=== PATIENT | female | born 1950 | race Caucasian/White ===

== ENCOUNTER 2017-04-13 11:06 | Observation (INO) | payer MEDICARE, OTHER ==
--- NOTE | ~2017-04-13 | HP ---
History And Physical [id number] [facility] [place]. [address] NAME: EARL DAVIDSON : 50 STATUS : ADM Jose Luis PAT#: [id number] AGE: 66 ADM/REG DATE : 04/13/17 MR#: [id number] REPORT SERV DATE: 04/13/17 DICTATED BY: JUSTIN GARLAND DATE: 04/13/17 REPORT STATUS : Draft TRANSCRIBED BY: MODL DATE: 04/13/17 DATE OF ADMISSION: 04/13/2017 HISTORY OF PRESENT ILLNESS: The patient is a 66-year-old female without known coronary artery disease, who presented to the [facility] for evaluation of rash and chest pain. The patient with a history of Helicobacter pylori, peptic ulcer disease, and GERD, who has been on a combination of Flagyl, Levaquin, Bismuth, and pantoprazole for the last five to six days. This is reportedly a second round of treatment for H pylori. The patient reports for the last two days, she has developed intermittent chest discomfort, occurring in the substernal region with radiation to the neck bilaterally and directly through to the back to the interscapular region. The patient denies meal association with the pain. She reports that the longest duration of the pain has been approximately 30 minutes. Maximum intensity of the pain is 6-7/10. The patient has been quite sedentary and has noted no obvious exacerbating or relieving factors. The patient also noted onset of a pruritic rash to the torso and extremities yesterday. This progressed to the point that this brought her to the emergency department in association with her chest discomfort. She has hive-appearing rash to the chest, thighs, and upper extremities. She denies any respiratory distress. She currently denies chest pain. She reports no unusual recent meals, contacts with substances or animals to which she is not accustomed. The only recent change is the initiation of Flagyl and Levaquin approximately five days ago. PAST MEDICAL HISTORY: 1. Hypertension. 2. GERD. 3. Peptic ulcer disease with H pylori. 4. B12 deficiency. 5. Hypothyroidism. 6. Restless legs syndrome. 7. History of depression. ALLERGIES: PENICILLIN, ERYTHROMYCIN, AND SULFA WITH RASH REACTION. ASPIRIN, NAPROXEN, AND IBUPROFEN WITH FACIAL SWELLING. SOCIAL HISTORY: Denies previous tobacco, alcohol, or illicit drug use. FAMILY HISTORY: Father with coronary artery bypass grafting in his 60s, who in his 80s of complications of congestive heart failure. Mother with history of diabetes. PAST SURGICAL HISTORY: Hysterectomy, section, left total knee arthroplasty, right total hip arthroplasty. REVIEW OF SYSTEMS: Negative for all organ systems except per the history of present illness. MEDICATIONS: 1. Atenolol 25 mg daily. History And Physical [address] [address] NAME: ERAL DAVIDSON : 50 STATUS : ADM Jose Luis PAT#: [id number] AGE: 66 ADM/REG DATE : 04/13/17 MR#: [id number] REPORT SERV DATE: 04/13/17 DICTATED BY: JUSTIN GARLAND DATE: 04/13/17 REPORT STATUS : Draft TRANSCRIBED BY: JOEY DATE: 04/13/17 2. Vitamin B12 1000 mcg sublingual daily. 3. Levaquin 500 mg daily. 4. Levothyroxine 50 mcg daily. 5. Lisinopril/hydrochlorothiazide 20/12.5 mg daily. 6. Metronidazole 250 mg q.i.d. 7. Multivitamin with minerals daily. 8. Requip 0.25 mg p.o. at bedtime. PHYSICAL EXAMINATION: VITALS: Blood pressure 164/82, pulse 65, respirations 12 and unlabored. GENERAL: Obese, elderly female, in no acute distress. HEENT: Normal. NECK: Supple, no JVD or bruit, normal carotid upstroke bilaterally, no thyromegaly. LUNGS: Clear to auscultation and percussion. No wheezes, rales or rhonchi. No use of accessory muscles. CARDIOLOGY: Regular rhythm, normal S1, S2, no thrill, no murmur, rubs or gallops, normal PMI. ABDOMEN: Bowel sounds positive, soft, nontender, and obese. No masses or aortic bruits. No hepatosplenomegaly or hepatojugular reflux. EXTREMITIES: Hyperpigmentation at the ankles bilaterally. SKIN: Raised hive-type reaction noted to the chest, upper extremities, and thighs. NEUROLOGIC: Alert and oriented x 3. Appropriate mood. EKG: Sinus rhythm. Normal EKG. LABORATORIES: WBC 7.9, hemoglobin 13.9, hematocrit 40.9, platelets 231,000. Serial troponin 0.00 and 0.06. CK-MB 1.8. Liver function tests are within normal limits. Sodium 136, potassium 4, chloride 101, CO2 of 26, BUN 28, creatinine 1. Creatine kinase 60. IMPRESSION: 1. Chest pain - suspicious for gastrointestinal etiology, however, rising troponin level by serial emergency department evaluation. The patient admitted to observation status. Serial troponins. If negative, we will plan for discharge in the a.m. If troponins continue to rise, we will plan for cardiac catheterization. The risks, benefits, and alternatives of the procedure have been discussed with the patient. The patient's questions have been answered. Complications including, but not limited to, , myocardial infarction, stroke, renal failure, life-threatening allergic reaction, life- threatening arrhythmia, vascular or cardiac injury requiring emergent surgery have been discussed with the patient. The patient voices understanding the potential risks and desires to proceed if necessary. 2. Allergic reaction - etiology is unclear. We will hold the patient's antibiotics at this time. Begin a Medrol Dosepak and Benadryl. 3. Hypertension - adequate blood pressure control by home measurements. Elevated today, likely related to anxiety, pain, and recent administration of intravenous steroids. 4. Continue other home medications as outlined in the home medication list. History And Physical [address] [address] NAME: EARL DAVIDSON : 50 STATUS : ADM Jose Luis PAT#: [id number] AGE: 66 ADM/REG DATE : 04/13/17 MR#: [id number] REPORT SERV DATE: 04/13/17 DICTATED BY: JUSTIN GARLAND DATE: 04/13/17 REPORT STATUS : Draft TRANSCRIBED BY: JOEY DATE: 04/13/17 JEFF/JEOY Jean Paul Garland M.D. / [id number] CC: Tyrell Manning M.D.
[~2017-04-13 11:06] MED LIST: ATEN25 PO; CENTRUM PO; COLLAGEN PLU PO; DSS PO; ELIQUIS 2.5 MG2.5 MG PO; FESO4 PO; HCTZ12.5 PO; LEVOTHYROXIN50 MCG PO; MVI PO; NORCO1 TA1 PO; OXYCON10 PO; OXYCON20 PO; PCET PO; PEP20 PO; PR25 PO; PRINZIDE1 TA1 PO; VITAMIN B-121000 MC1 SL; WELL100 PO; [UNRECOGNIZED DRUG - OTHER]
[2017-04-13] MEDS ORDERED: REQUIP25 PO (11:26)
[2017-04-13] MEDS ORDERED: LEVAQUIN5T PO (11:29)
[2017-04-13] MEDS ORDERED: FLAGYL250 MG PO (11:32)
[2017-04-13] MEDS ORDERED: PROTONIX PO (19:06)
[2017-04-13] MEDS ORDERED: PRILOSEC OTC20 MG PO (19:07)
[2017-04-13] MEDS ORDERED: PEPTO-BISMOL TA1 TAB PO (19:09)
[2017-04-14] MEDS ORDERED: MEDROLPAK4 PO (09:57)
[2017-04-14] MEDS ORDERED: SUCR PO (09:58)
[2017-04-14] MEDS ORDERED: BEN25 PO (10:01)
== END 2017-04-14 10:29 | disposition home or self-care (01) ==
LOC: CDU2 11:06
DX: R07.89 Other chest pain (principal); T78.40XA Allergy, unspecified, initial encounter; X58.XXXA Exposure to other specified factors, initial encounter; I10 Essential (primary) hypertension; E53.8 Deficiency of other specified B group vitamins; E03.9 Hypothyroidism, unspecified; G25.81 Restless legs syndrome; K27.9 Peptic ulcer, site unspecified, unspecified as acute or chronic, without hemorrhage or perforation; K21.9 Gastro-esophageal reflux disease without esophagitis; Z82.49 Family history of ischemic heart disease and other diseases of the circulatory system; Z83.3 Family history of diabetes mellitus; Z90.710 Acquired absence of both cervix and uterus; Z98.890 Other specified postprocedural states; Z96.652 Presence of left artificial knee joint; Z96.641 Presence of right artificial hip joint; Z88.0 Allergy status to penicillin; Z88.1 Allergy status to other antibiotic agents; Z88.2 Allergy status to sulfonamides; Z88.6 Allergy status to analgesic agent; Z79.2 Long term (current) use of antibiotics; Z79.899 Other long term (current) drug therapy
CPT/HCPCS: 84484; 96374; A9270-GY; G0378; J0360

== ENCOUNTER 2017-04-15 17:00 | Observation (INO) | payer MEDICARE, OTHER ==
--- NOTE | ~2017-04-15 | CN ---
Consultation Report [facility] [address] [place] [place]. [address] NAME: EARL DAVIDSON : 50 STATUS : DIS Jose Luis PAT#: [id number] AGE: 66 ADM/REG DATE : 04/15/17 MR#: [id number] REPORT SERV DATE: 04/16/17 DICTATED BY: SISSY MARTINEZ DATE: 04/16/17 REPORT STATUS : Draft TRANSCRIBED BY: MODJosue DATE: 04/16/17 CARDIOLOGY CONSULTATION NOTE DATE OF CONSULTATION: 04/16/2017 PRIMARY POWERHOUSE ELECTRICIAN: Dr. Garland. CHIEF COMPLAINT: Epigastric pain. REASON FOR CONSULTATION: Bradycardia. SOURCE: The patient and the chart. HISTORY OF PRESENT ILLNESS: Ms. Davidson is a very pleasant, 66-year-old, white woman, who has no prior cardiac history. She reports that she was recently hospitalized in the Chest Pain Observation Unit from 04/13/2017 to 04/14/2017, as she ruled out for myocardial infarction and was discharged home. She was readmitted yesterday for possible drug reaction and esophagitis. She was having some chest discomfort. She underwent EGD today, which revealed hiatal hernia. No esophagitis, and biopsy was taken of the stomach for H pylori. Proton pump inhibitors were recommended, and she was discharged and given followup. We were asked to see her for possible cardiac source of chest pain. REVIEW OF SYSTEMS: All other systems are negative. ALLERGIES: INCLUDE PENICILLIN, SULFA, ASPIRIN, IBUPROFEN, NAPROSYN, AND ERYTHROMYCIN. MEDICATIONS: At home included atenolol 25, B12, Benadryl, levothyroxine, lisinopril, HCT, Medrol Dosepak, Centrum, Protonix, ropinirole, and sucralfate. PAST MEDICAL HISTORY: Significant for peptic ulcer disease and esophagitis, seen by Dr. Bunn with treatment for H pylori. Depression. Hypothyroidism, on replacement. Hypertension, B12 deficiency, restless legs, rheumatoid arthritis. Never been on disease- modifying medication such as methotrexate. Elevated cholesterol. FAMILY HISTORY: Father had coronary artery bypass grafting. SOCIAL HISTORY: The patient lives in [place]. Seven children and six of whom live locally, 11 grandchildren. Denies tobacco or alcohol use. She is . PHYSICAL EXAMINATION: GENERAL: Well-developed, well-nourished elderly white woman, in no acute distress. VITAL SIGNS: Blood pressure is 164/70, pulse 48, temperature 97.7 degrees Fahrenheit. Weight is 128.8 kilos. Height is 5 feet 9 inches. Consultation Report [address]. [address] NAME: EARL DAVIDSON : 50 STATUS : DIS Jose Luis PAT#: [id number] AGE: 66 ADM/REG DATE : 04/15/17 MR#: [id number] REPORT SERV DATE: 04/16/17 DICTATED BY: SISSY MARTINEZ DATE: 04/16/17 REPORT STATUS : Draft TRANSCRIBED BY: JOEY DATE: 04/16/17 HEENT: Sclerae anicteric. Lips without cyanosis. NECK: Carotids 2+ and symmetrical. No bruits. No JVD. No thyromegaly. LUNGS: Clear to auscultation. No use of accessory muscles. HEART: Regular rate and rhythm without murmur, gallop, or rub. ABDOMEN: Obese, positive bowel sounds, soft, and nontender. EXTREMITIES: Pulses 2+ and symmetrical. No cyanosis, clubbing, or edema. BACK: No CVA tenderness. MUSCULOSKELETAL: Good tone. NEUROLOGIC: Alert and oriented x3. LABORATORY DATA AND IMAGING: EKG reveals sinus bradycardia, otherwise normal tracing. Laboratory examination includes white count of 9.2, hemoglobin 13.6, hematocrit 40.9, platelets 255,000. INR is 1.1. PTT of 27.4. The BNP level is 113, sodium 141, potassium 4.0, chloride 106, CO2 of 29, glucose 177, BUN 32, creatinine 1.22, troponin of less than 0.22, TSH of 0.242. Free T4 of 1.24 and T3 free of 1.47. EGD report from today normal esophagus, hiatal hernia, normal mucosa found in the entire stomach, biopsied. Exam was otherwise normal. IMPRESSION: 1. Bradycardia. Possibly side effect of atenolol. She has other potential contributing factors including diphenhydramine use, obesity. Cannot exclude sleep apnea. And hypothyroidism on replacement. She specifically denies sleep apnea. She has been tested for it. 2. Check thyroid function tests already done. 3. Stop atenolol. 4. Ambulatory blood pressure checks. Consider alternative antihypertensive medication such as amlodipine should she develop worsened hypertension. 5. Follow up with Dr. Garland as needed. 6. Further care per GI and her PCP. 7. For outpatient consultation if needed. ARIANE/JOEY Sissy Martinez M.D. / [id number] CC: Tyrell Medina M.D.
--- NOTE | ~2017-04-15 | EGD ---
EGD REPORT [facility] [address] [address] NAME: HODAN DAVIDSON : 50 STATUS : ADM Jose Luis PAT#: [id number] AGE: 66 ADM/REG DATE : 04/15/17 MR#: [id number] REPORT SERV DATE: 04/16/17 DICTATED BY: ASHER IRIZARRY DATE: 04/16/17 REPORT STATUS : Draft [facility]ANSCRIBED [facility]: [facility] DATE: 04/16/17 Endoscopy Center Patient Name: Hodan Davidson Date of : 1950 Attending MD: ASHER IRIZARRY MD Procedure Date No Time: 04/16/2017 Procedure: Upper GI endoscopy Indications: Odynophagia, Unexplained chest pain Referring MD: PALMER RODRIGUEZ MD Medicines: Monitored Anesthesia Care Complications: No immediate complications. Estimated blood loss: Minimal. Procedure: Pre-Anesthesia Assessment: - ASA Grade Assessment: III - A patient with severe systemic disease. - After reviewing the risks and benefits, the patient was deemed in satisfactory condition to undergo the procedure. After obtaining informed consent, the endoscope was passed under direct vision. Throughout the procedure, the patient's blood pressure, pulse, and oxygen saturations were monitored continuously. The GIF [id number] was introduced through the mouth, and advanced to the fourth part of duodenum. The upper GI endoscopy was accomplished without difficulty. The patient tolerated the procedure well. Findings: The examined esophagus was normal. A medium-sized hiatus hernia was present. Normal mucosa was found in the entire examined stomach. Biopsies were taken with a cold forceps for Helicobacter pylori testing. Estimated blood loss was minimal. The examined duodenum was normal. The exam was otherwise without abnormality. Impression: - Normal esophagus. - Hiatus hernia. - Normal mucosa was found in the entire stomach. Biopsied. - The examination was otherwise normal. Recommendation: - Return patient to hospital [facility] for ongoing care. - Clear liquid diet today. - Use Protonix (pantoprazole) 40 mg PO daily. EGD REPORT [facility] [address] [facility] [place]. [address] NAME: HODAN DAVIDSON : 50 STATUS : ADM Jose Luis PAT#: [id number] AGE: 66 ADM/REG DATE : 04/15/17 MR#: [id number] REPORT SERV DATE: 04/16/17 DICTATED BY: ASHER IRIZARRY DATE: 04/16/17 REPORT STATUS : Draft TRANSCRIBED BY: Mazree DATE: 04/16/17 Procedure Code(s): --- Professional --- 25750, Esophagogastroduodenoscopy, flexible, transoral; with biopsy, single or multiple Diagnosis Code(s): --- Professional --- K44.9, Diaphragmatic hernia without obstruction or gangrene R13.10, Dysphagia, unspecified R07.9, Chest pain, unspecified CPT copyright 2013 [employer]. All rights reserved. The codes documented in this report are preliminary and upon senior quantity surveyor review may be revised to meet current compliance requirements. Asher Irizarry MD ASHER IRIZARRY MD 04/16/2017 11:19 AM This report has been signed electronically. Number of Addenda: 0 Note Initiated On: 04/16/2017 10:13 AM Scope Withdrawal Time 0 hours 0 minutes 0 seconds [address] [place] [address]
--- NOTE | ~2017-04-15 | CN ---
Consultation Report [facility] [address] [place]. [address] NAME: EARL DAVIDSON : 50 STATUS : ADM Jose Luis PAT#: [id number] AGE: 66 ADM/REG DATE : 04/15/17 MR#: [id number] REPORT SERV DATE: 04/16/17 DICTATED BY: HAVEN PATEL DATE: 04/16/17 REPORT STATUS : Draft TRANSCRIBED BY: MODL DATE: 04/16/17 GI CONSULTATION DATE OF CONSULTATION: 04/16/2017 REASON FOR CONSULTATION: Evaluation and management of odynophagia, history of esophagitis, and H. pylori. HISTORY OF PRESENT ILLNESS: Ms. Davidson is a very pleasant 66-year-old female patient known to Dr. Bunn in the outpatient setting, who presented to [facility] on 04/15/2017 with a chief complaint of hives and odynophagia. The patient has a history of recently being admitted to [facility] on 04/13/2017 for chest pain, which was ultimately determined to be noncardiac, felt to be gastrointestinal in nature, and was discharged the same day. She did have hives at that point in time and was began on Benadryl and a Medrol Dosepak. She states that on Friday morning, she awoke and was unable to swallow water without extreme pain. She states then she began having this gurgling sensation and would regurgitate liquids back up. She has not eaten anything solid since that point in time. Secondary to the hives and the complaints of odynophagia, she came in for further evaluation. She has a history of having an upper endoscopy with Dr. Bunn in November of this year showing LA grade B esophagitis and nonobstructing Schatzki ring at the GE junction. Biopsies were taken and returned positive for H. pylori. She was treated on 12/20/2016 with Pylera. She was seen in followup with Dr. Bunn on 04/01/2017 at that point in time. She had reported that her GERD had improved. She was having no trouble swallowing, and she was started on a regimen of Flagyl, Levaquin, and bismuth. She had been taking that for several days before she developed hives. She has subsequently been taken off that medication. On 04/13/2017, she was also started on Carafate, but she states has not improved any of her symptoms. She denies any abdominal pain. She has no nausea and no vomiting. She has a poor p.o. intake secondary to odynophagia. No shortness of breath. No chest discomfort. She does have itching on her bilateral upper extremities with a hive-type rash as well as her chest. I have discussed with the patient. She has been held n.p.o. We will plan on taking her to the endoscopy suite today for EGD for further evaluation of her odynophagia symptoms. PAST MEDICAL HISTORY: Positive for Schatzki ring, peptic ulcer disease, H. pylori, esophagitis, depression, hypothyroidism, obesity, hypertension, restless legs syndrome, rheumatoid arthritis, elevated cholesterol, and B12 deficiency. PAST SURGICAL HISTORY: Includes hysterectomy, , and left knee and right hip surgeries. ALLERGIES: TO MOST NONSTEROIDAL DRUGS, PENICILLIN, AND ERYTHROMYCIN. SOCIAL HISTORY: She is and lives independently with her . She denies alcohol, tobacco, or illicit drug use. Consultation Report [address] [address] NAME: EARL DAVIDSON : 50 STATUS : ADM Jose Luis PAT#: [id number] AGE: 66 ADM/REG DATE : 04/15/17 MR#: [id number] REPORT SERV DATE: 04/16/17 DICTATED BY: HAVEN PATEL DATE: 04/16/17 REPORT STATUS : Draft TRANSCRIBED BY: JOEY DATE: 04/16/17 FAMILY HISTORY: Noncontributory from a GI standpoint. HOME MEDICATIONS: Include Tenormin, vitamin B12, Benadryl, levothyroxine, Prinzide, Medrol Dosepak, Centrum, multivitamin, Protonix, Requip, and Carafate. REVIEW OF SYSTEMS: A 10-point review of systems has been obtained with pertinent positives being addressed in the history of present illness. PHYSICAL EXAMINATION: VITAL SIGNS: Temperature 97.2, pulse 42, respirations 13, and blood pressure 168/70. NEURO: Reveals an alert female resting in bed with no focal deficits being noted. GENERAL: She is cooperative. She is in no acute distress. She has an obese body habitus. HEAD, EARS, EYES, NOSE, AND THROAT: Anicteric. Pupils are equal, round, and reactive to light and accommodation. Normocephalic and atraumatic. NECK: Supple. No JVD. No palpable nodes. LUNGS: Decreased in the bases; clear in the upper lobes bilaterally with normal respiratory effort exhibited. CARDIOVASCULAR SYSTEM: Regular rate and rhythm, bradycardic in nature. ABDOMEN: Soft and obese. No distention. No rebound or guarding elicited on exam. Active bowel sounds in all four quadrants. EXTREMITIES: No edema. Normal distal pulses. SKIN: Warm, dry, and intact, but noted red rash in bilateral upper extremities and chest. PERTINENT LABORATORY DATA: Sodium 141, potassium 4.0, BUN is 32, creatinine 1.22. White count 9.2, hemoglobin 13.6, hematocrit 40.9, platelets 255. INR of 1.1. ASSESSMENT: 1. Odynophagia with a history of esophagitis and Helicobacter pylori. 2. Hives, questionable drug reaction as the patient was on bismuth and has reaction to nonsteroidals. 3. Noncardiac chest pain. 4. Bradycardia. PLAN: 1. Check stool for H. pylori. 2. GI cocktail, hyoscyamine, and continue her Protonix drip started by hospitalist. 3. EGD today with Dr. Orta. 4. Clear liquid diet after as well as other recommendations to follow endoscopy. LISA/JOEY [place] Consultation Report [address] [place]. [address] NAME: EARL DAVIDSON : 50 STATUS : ADM Jose Luis PAT#: [id number] AGE: 66 ADM/REG DATE : 04/15/17 MR#: [id number] REPORT SERV DATE: 04/16/17 DICTATED BY: HAVEN PATEL DATE: 04/16/17 REPORT STATUS : Draft TRANSCRIBED BY: JOEY DATE: 04/16/17 GREG Garcia / [id number] CC: Tyrell Medina M.D.
--- NOTE | ~2017-04-15 | HP ---
History And Physical [place] [id number] [facility] [place]. [address] NAME: EARL DAVIDSON : 50 STATUS : ADM Jose Luis PAT#: [id number] AGE: 66 ADM/REG DATE : 04/15/17 MR#: [id number] REPORT SERV DATE: 04/15/17 DICTATED BY: CELENA MONTGOMERY DATE: 04/15/17 REPORT STATUS : Draft TRANSCRIBED BY: MODL DATE: 04/15/17 DATE OF ADMISSION: 04/15/2017 CHIEF COMPLAINT: A 66-year-old female presenting with hives drug reaction and severe esophagitis symptoms. HISTORY OF PRESENTING ILLNESS: The patient's history was obtained through careful interview with the patient and her , coupled with review of [facility] medical records. The patient has had to undergo two rounds of antibiotic treatment for H pylori for peptic ulcer disease and esophagitis, followed by Dr. Kemra Bunn. She had recently been started on Flagyl, Levaquin, and subsalicylate. She had been on those antibiotics for perhaps as long as a week went on 04/12/2017 she noticed a rash. She first thought it might just be a mosquito bite or an atypical sunburn, as she was out in the sun with her grandchildren, but then it seemed to extend over parts of her torso and become increasingly itchy, red, and raised. There was no heat and no tenderness to this rash. She did go to the emergency department at [facility] on 04/13/2017, the day after the rash began. She was started on steroids and Benadryl. Then, over the last few days, she has had increasing odynophagia with painful swallowing and a feeling as if she is "gurgling up" everything she eats or drinks with significant reflux- like symptoms. She describes the pain as an aching discomfort and burning in her esophagus 5 to 6 out of 10 severity. She has had nausea, but no vomiting, a very poor appetite and poor oral intake. No shortness of breath. No chest pain. No lightheadedness. REVIEW OF SYSTEMS: Otherwise, a 14-point review of systems was obtained and was negative. PAST MEDICAL HISTORY: 1. Peptic ulcer disease and esophagitis, seen by Dr. Bunn with treatment for H pylori. 2. Depression. 3. Hypothyroidism. 4. Hypertension. 5. B12 deficiency. 6. Restless legs syndrome. 7. Rheumatoid arthritis, but has never been on disease-modifying medications such as methotrexate etc. 8. Elevated cholesterol. PAST SURGICAL HISTORY: 1. Hysterectomy. History And Physical [place] [address] [facility] [place]. [address] NAME: EARL DAVIDSON : 50 STATUS : ADM Jose Luis PAT#: [id number] AGE: 66 ADM/REG DATE : 04/15/17 MR#: [id number] REPORT SERV DATE: 04/15/17 DICTATED BY: CELENA MONTGOMERY DATE: 04/15/17 REPORT STATUS : Draft TRANSCRIBED BY: JOEY DATE: 04/15/17 2. . 3. Left knee surgery. 4. Right hip surgery. ALLERGIES: APPARENTLY HAS HAD QUITE SEVERE AND MULTIPLE DRUG REACTIONS TO NONSTEROIDAL ANTIINFLAMMATORY DRUGS AND ALSO HAS HAD INTOLERANCE TO PENICILLIN AND ERYTHROMYCIN. SOCIAL HISTORY: No tobacco abuse. No alcohol abuse. Is . Lives in [place], [place]. She has a total of seven children, six of whom live locally. She has 11 grandchildren. FAMILY HISTORY: Diabetes and heart disease. Father with CABG. CURRENT MEDICATIONS: Include atenolol 25 mg p.o. daily, vitamin B12, Benadryl, levothyroxine 50 mcg p.o. daily, lisinopril/hydrochlorothiazide 20/12.5 p.o. daily, Medrol Dosepak, multivitamin, Protonix 40 mg p.o. daily, Requip 0.25 mg at bedtime, and sucralfate 1 g before meals and at bedtime. PHYSICAL EXAMINATION: VITAL SIGNS: Temperature 98.6, pulse 57, blood pressure 189/90, respiratory rate 16, O2 saturation 97% on room air. GENERAL: A pleasant, cooperative female, in no evidence of acute distress. HEENT: Pupils equal, round, and reactive to light. No conjunctival pallor. No scleral icterus. Nares are patent. Oropharynx is clear of obstruction. No intraoral lesions. Moist mucous membranes. NECK: Trachea midline. No thyromegaly. LYMPH: No cervical lymphadenopathy. No supraclavicular lymphadenopathy. RESPIRATORY: Clear to auscultation at bases. No wheezes, rales, or rhonchi. No respiratory distress. No stridor. CARDIOVASCULAR: Bradycardic, regular rhythm. No murmurs, rubs, or gallops. No current extremity edema is appreciated. ABDOMEN: Soft, nontender, nondistended. Normal bowel sounds auscultated throughout. No hepatosplenomegaly. DERMATOLOGICAL: The patient has quite extensive hives reaction. It is around her neck, her upper extremities, her torso, and abdominal wall in particular. It does not affect her scalp or her face. EXTREMITIES: Warm and dry extremities. No pallor, no cyanosis. PSYCHIATRIC: Normal affect. Good mood. Alert and oriented x3. LABORATORY DATA: White blood cell count 12.5, hemoglobin 14, hematocrit 40, platelets 276. Sodium 137, potassium 4.2, chloride 105, bicarb 28, BUN 33, creatinine 0.12, glucose 121. Troponin negative. INR 1.1. STUDIES: Chest x-ray by my own evaluation shows no acute cardiopulmonary process. ASSESSMENT AND PLAN: 1. Hives drug reaction. Likely, this is a drug reaction to subsalicylate since the History And Physical [address] [address] NAME: EARL DAVIDSON : 50 STATUS : ADM Jose Luis PAT#: [id number] AGE: 66 ADM/REG DATE : 04/15/17 MR#: [id number] REPORT SERV DATE: 04/15/17 DICTATED BY: CELENA MONTGOMERY DATE: 04/15/17 REPORT STATUS : Draft TRANSCRIBED BY: JOEY DATE: 04/15/17 patient had such a strong previous allergy to nonsteroidal antiinflammatory drugs. We have stopped this medication, but the patient was also on Flagyl and Levaquin, and these were also stopped several days ago. We will continue steroids and Benadryl. 2. Esophagitis with peptic ulcer disease with history of H pylori. Now, the patient has extreme odynophagia and reflux symptoms. 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 Start on an IV proton pump inhibitor drip for now. 3. Hypertension. P.r.n. medications and monitor. KPL/MODL Celena Montgomery M.D. / [id number] CC: Tyrell Anderson MD Munford Yates III, M.D. Ronald Jarl, M.D.
--- NOTE | ~2017-04-15 | DS ---
Discharge Summary [facility] [address] [place]. [address] NAME: EARL DAVIDSON : 50 STATUS : DIS Jose Luis PAT#: [id number] AGE: 66 ADM/REG DATE : 04/15/17 MR#: [id number] REPORT SERV DATE: 04/17/17 DICTATED BY: CHRIS KINGSLEY DATE: 04/16/17 REPORT STATUS : Draft TRANSCRIBED BY: MODL DATE: 04/16/17 ADMISSION DATE: 04/15/2017 DISCHARGE DATE: 04/16/2017 DISCHARGE DIAGNOSES: 1. Odynophagia, most likely due to hiatal hernia. No evidence of esophagitis. 2. Drug reaction, most likely sulfa drug reaction with cross-reactivity to subsalicylates and hydrochlorothiazide. 3. Noncardiac chest pain. 4. Bradycardia, currently stable. 5. Hypothyroidism. 6. Gastroesophageal reflux. 7. Restless legs syndrome. 8. History of depression. 9. History of rheumatoid arthritis with no medications at this time. CONSULTANTS DURING THIS HOSPITALIZATION: 1. Dr. Colby Reza of Cardiology. 2. Dr. Asher Orta of Gastroenterology. INVASIVE PROCEDURES DONE DURING THIS HOSPITALIZATION: EGD showing a hiatal hernia with no evidence of esophagitis and no ulcers. BRIEF HISTORY OF PRESENT ILLNESS: The patient is a 66-year-old white female, admitted through the emergency room with complaints of chest pain and hives. For detailed history and physical exam, please see note dictated by Dr. Kedar Villareal on 04/15/2017. HOSPITAL COURSE: After being admitted to the hospital, this patient was kept on p.o. steroids. Her salicylates were discontinued. When I saw the patient, this patient apparently also is taking hydrochlorothiazide which also has cross-reactivity with sulfa reaction, so we have decided to discontinue that. She had significant bradycardia. We have discontinued her atenolol. Cardiology saw the patient and agree with that. There was no further cardiac testing or plans for cardiac testing. At this time, GI has signed off her care. We will keep her off the atenolol. We will increase the lisinopril to 20 mg twice daily. She will finish her Medrol Dosepak, and I have recommended that it will take about four weeks for the rash to go away as this does look like a sulfa reaction rash. In the meantime, we should avoid any kinds of anti-inflammatory nonsteroidals and loop diuretics and proximal loop diuretics because of the sulfa cross-reactivity. This patient remained stable otherwise and is being discharged in stable condition. DISCHARGE DISPOSITION: Home. DISCHARGE ACTIVITY: As tolerated. DISCHARGE DIET: Low sodium diet. Discharge Summary [place] [id number] [id number] NAME: EARL DAVIDSON : 50 STATUS : DIS Jose Luis PAT#: [id number] AGE: 66 ADM/REG DATE : 04/15/17 MR#: [id number] REPORT SERV DATE: 04/17/17 DICTATED BY: CRHIS KINGSLEY DATE: 04/16/17 REPORT STATUS : Draft TRANSCRIBED BY: JOEY DATE: 04/16/17 DISCHARGE MEDICATIONS: Protonix 40 mg p.o. one tablet twice daily; lisinopril 20 mg p.o. one tablet twice daily; vitamin B12, 1000 mcg sublingual once daily; Benadryl 25 mg p.o. twice daily p.r.n. for itching; levothyroxine 50 mcg once daily; Requip 0.25 mg to 0.5 mg once at bedtime for restless legs; Carafate 1 g p.o. q.i.d. before meals and at bedtime; methylprednisolone. At this time, she remains medically stable and is being discharged in stable condition to further followup with the primary care physician and Dr. Bunn in the outpatient setting. DISCHARGE FOLLOWUP: With Dr. Bunn and with Dr. Shailesh Stern as previously scheduled. More than 30 minutes were spent planning this patient's discharge, reconciling medications, writing prescriptions, discussing hospital care, findings of all the lab studies, and discussing followup with the patient as well as documenting this discharge. DICTATED BY: Tyrell Medina/JOEY Chris Kingsley M.D. / [id number] CC: Tyrell Molina III, M.D.
[~2017-04-15 17:00] MED LIST changes: +BEN25 PO; +FLAGYL250 MG PO; +LEVAQUIN5T PO; +MEDROLPAK4 PO; +PEPTO-BISMOL TA1 TAB PO; +PRILOSEC OTC20 MG PO; +PROTONIX PO; +REQUIP25 PO; +SUCR PO
[2017-04-15 17:28] LABS: BASOPHILS 0.2 %; BASOPHILS ABSOLUTE 0.02 10/3/uL (0.0-0.16); EOSINOPHILS 0.2 %; EOSINOPHILS ABSOLUTE 0.03 10/3/uL (0.0-0.53); ER CBC TAT 0 Hrs 08 Mins; IMMATURE GRANULOCYTES 0.4 %; IMMATURE GRANULOCYTES ABSOLUTE 0.05 10/3/uL (0.0-0.11); LYMPHOCYTES 9.8 %; LYMPHOCYTES ABSOLUTE 1.23 10/3/uL (0.67-4.30); MEAN CORPUSCULAR HEMOGLOB 29.8 pg (26.0-34.0); MEAN CORPUSCULAR VOLUME 87.5 fL (80-100); MEAN PLATELET VOLUME 9.3 fL (9.2-13.0); MONOCYTES 10.5 %; MONOCYTES ABSOLUTE 1.31 10/3/uL (0.21-1.20); NEUTROPHILS 78.9 %; NEUTROPHILS ABSOLUTE 9.87 10/3/uL (2.02-8.40); PLATELET COUNT 276 10/3/uL (150-400); RBC DISTRIBUTION WIDTH 14.9 % (12.0-16.0); WHITE BLOOD CELLS 12.5 10/3/uL (4.5-10.5)
[2017-04-15 17:29] LABS: HEMATOCRIT 39.9 % (36.0-48.0); HEMOGLOBIN 13.6 g/dL (12.0-16.0); MANUAL DIFF NO %; MEAN CORPUS HGB CONC 34.1 g/dL (32.0-36.0); RED CELL COUNT 4.56 10/6/uL (4.0-5.6)
[2017-04-15 17:38] LABS: INTERNATIONAL NORMAL RATI 1.1 UNITS (-); PROTIME (NOT ORD) 13.9 SEC (12.0-14.5)
[2017-04-15 17:53] LABS: CALCIUM, SERUM 9.1 MG/DL (8.5-10.4); CHLORIDE, SERUM 105 MMOL/L (96-112); CO2 (CARBON DIOXIDE) 28 MMOL/L (24-34); CREATININE 1.12 MG/DL (0.55-1.02); GFR AFRICAN AMERICAN 59 ML/MIN (>=60); GFR NON AFRICAN AMERICAN 51 ML/MIN (>=60); SODIUM, SERUM 137 MMOL/L (135-148); TROPONIN I <0.02 NG/ML (<0.05)
[2017-04-15 17:55] LABS: BUN (BLOOD UREA NITROGEN) 33 MG/DL (6-23); CHEST PAIN PROFILE TAT 0 Hrs 33 Mins; GLUCOSE, SERUM 121 MG/DL (60-99); POTASSIUM, SERUM 4.2 MMOL/L (3.5-5.3)
[2017-04-16 05:55] LABS: BASOPHILS 0.1 %; BASOPHILS ABSOLUTE 0.01 10/3/uL (0.0-0.16); EOSINOPHILS 0 %; HEMATOCRIT 40.9 % (36.0-48.0); HEMOGLOBIN 13.6 g/dL (12.0-16.0); IMMATURE GRANULOCYTES 0.7 %; IMMATURE GRANULOCYTES ABSOLUTE 0.06 10/3/uL (0.0-0.11); LYMPHOCYTES 10.8 %; MEAN CORPUS HGB CONC 33.3 g/dL (32.0-36.0); MEAN CORPUSCULAR VOLUME 87.2 fL (80-100); MEAN PLATELET VOLUME 9.4 fL (9.2-13.0); MONOCYTES 3.7 %; MONOCYTES ABSOLUTE 0.34 10/3/uL (0.21-1.20); NEUTROPHILS 84.7 %; NEUTROPHILS ABSOLUTE 7.82 10/3/uL (2.02-8.40); PLATELET COUNT 255 10/3/uL (150-400); RBC DISTRIBUTION WIDTH 14.9 % (12.0-16.0); RED CELL COUNT 4.69 10/6/uL (4.0-5.6); WHITE BLOOD CELLS 9.2 10/3/uL (4.5-10.5)
[2017-04-16 05:56] LABS: MANUAL DIFF NO %
[2017-04-16 06:03] LABS: INTERNATIONAL NORMAL RATI 1.1 UNITS (-); PARTIAL THROMBO TIME 27.4 SEC (22.5-37.2)
[2017-04-16 06:21] LABS: A/G RATIO 0.9 (0.7-1.9); ALBUMIN 3.5 G/DL (3.5-5.0); ALKALINE PHOSPHATASE 57 U/L (45-117); BUN (BLOOD UREA NITROGEN) 32 MG/DL (6-23); CALCIUM, SERUM 8.9 MG/DL (8.5-10.4); CHLORIDE, SERUM 106 MMOL/L (96-112); CO2 (CARBON DIOXIDE) 29 MMOL/L (24-34); CREATININE 1.22 MG/DL (0.55-1.02); GFR AFRICAN AMERICAN 53 ML/MIN (>=60); GFR NON AFRICAN AMERICAN 46 ML/MIN (>=60); GLOBULIN 3.7 G/DL (2.5-4.1); GLUCOSE, SERUM 177 MG/DL (60-99); SGOT(AST) 13 U/L (5-40); SGPT(ALT) 22 U/L (5-65); SODIUM, SERUM 141 MMOL/L (135-148); TOTAL BILIRUBIN 0.9 MG/DL (0-1.2); TOTAL PROTEIN 7.2 G/DL (6.0-8.5); TROPONIN I <0.02 NG/ML (<0.05); ULTRASENSITIVE TSH 0.242 MCIU/ML (0.358-3.740)
[2017-04-16 08:41] LABS: FREE T4 1.24 NG/DL (0.76-1.46)
[2017-04-16] MEDS ORDERED: ALDROXICON PO (13:56)
[2017-04-16] MEDS ORDERED: PRIN20 PO (13:57)
[2017-04-16] MEDS ORDERED: CLARIT10 PO ×2 (14:00→14:01)
== END 2017-04-16 14:21 | disposition home or self-care (01) ==
LOC: ER 17:00 → CDU1 19:46 → CDU2 21:16
PROVIDERS: Emergency Medicine; Internal Medicine; Internal Medicine Gastroenterology
PROC: 0DB68ZX Excision of Stomach, Via Natural or Artificial Opening Endoscopic, Diagnostic (ICD-10-PCS; principal; 2017-04-16 10:50)
DX: K29.50 Unspecified chronic gastritis without bleeding (principal); K44.9 Diaphragmatic hernia without obstruction or gangrene; K20.9 Esophagitis, unspecified; I10 Essential (primary) hypertension; E03.9 Hypothyroidism, unspecified; E66.9 Obesity, unspecified; M06.9 Rheumatoid arthritis, unspecified; E66.01 Morbid (severe) obesity due to excess calories; Z88.0 Allergy status to penicillin; Z88.2 Allergy status to sulfonamides; Z88.8 Allergy status to other drugs, medicaments and biological substances; Z79.899 Other long term (current) drug therapy; Z90.710 Acquired absence of both cervix and uterus; Z98.890 Other specified postprocedural states; Z96.652 Presence of left artificial knee joint
CPT/HCPCS: 71010; 80048; 80053; 83735; 83880; 84439; 84443; 84481; 84484; 85025; 85610; 85730; 88305; 93005; 96372; 96374; 96376; 99285; A9270-GY; C9113; G0378; J1200; J2930